=== PATIENT | male | born 1950 | race Caucasian/White ===

== ENCOUNTER → 2021-02-11 10:28 | Outpatient (BNVA) | payer MEDICARE, SELFPAY | PROVIDERS: PCP Internal Medicine; Visit Provider Urology | DX: N40.2 Nodular prostate without lower urinary tract symptoms (principal) | CPT/HCPCS: Q3014 ==

== ENCOUNTER 2023-04-07 13:26 | Day surgery (SDC) | payer MEDICARE, SELFPAY ==
[2023-04-05 11:09] VITALS: BMI 22.1
[2023-04-07] VITALS (8 sets, daily range): BP systolic 95–131; BP diastolic 53–86; PULSE 52–66; RESP 16–18; TEMP 36.1–37.1; O2SAT 98–100
--- NOTE | 2023-04-07 14:10 | HO.ANESPROP2 ---
HPI - Anesthesia Eval Consult details Narrative: EGD PMFSH Active Problems Active Problems: All Active Problems (Updated 04/05/23 @ 11:06 by Tricia Gibbs RN) Prostate nodule (Acute) Past Medical History Medical History BPH (benign prostatic hyperplasia) Anxiety and depression Arthritis Sleep apnea GERD (gastroesophageal reflux disease) Hyperlipidemia Hypothyroidism Depression Prostate nodule Family History Family history of problems with anesthesia: No Surgical History Surgical History H/O colonoscopy Hx of knee surgery History of carpal tunnel release History of Problems with Anesthesia: No Social History Social History Patient Tobacco Use Status: Never used Tobacco Have you been hit, kicked, punched, or otherwise hurt by someone within the past year? If so, by whom?: No Are you DNR?: No Advance Directives: No Advance Directives Information Provided: Yes Recently lost weight without trying: No Eating poorly because of decreased appetite: No Nutrition Risks: No Nutritional Risk Poor oral hygiene: No Meds Allergies Allergy/AdvReac Type Severity Reaction Status Date / Time aripiprazole [Abilify] Allergy Unknown Unknown Verified 02/11/21 10:29 fluoxetine [Prozac] Allergy Unknown Unknown Verified 02/11/21 10:29 Home Medications Medication Instructions Recorded Confirmed Last Taken Type atorvastatin 20 mg tablet 20 mg PO DAILY 02/11/21 04/05/23 Unknown History levothyroxine 50 mcg tablet 50 mcg PO DAILY 02/11/21 04/05/23 Unknown History (Euthyrox) gabapentin 300 mg capsule mg 04/05/23 04/05/23 Unknown History lithium carbonate 150 mg capsule 150 mg PO BID 04/05/23 04/05/23 Unknown History sildenafil 100 mg tablet 100 mg PO NEEDED intercourse 04/05/23 04/05/23 Unknown History Exam Exam Date and Time: April 07, 2023 141 Height,Weight and Vital Signs: Height 5 ft 9.5 in Weight 68.946 kg Last Vital Signs Temp 98.7 F 04/07/23 13:56 Pulse 57 04/07/23 13:56 Resp 18 04/07/23 13:56 BP 131/86 04/07/23 13:56 Pulse Ox 100 04/07/23 13:56 O2 Del Method Room Air 04/07/23 13:56 Airway Mallampati Class: II TM Dist: >3cm Neck ROM: Limited Heart: rrr Lungs: cta Assessment and Plan Assessment Anesthesia Assessment: Anesthesia Plan Discussed and Chart Reviewed Final Anesthetic Review Family History of Problems with Anesthesia: No History of Problems with Anesthesia: No NPO: Yes ASA Class: II Final Preanesthetic Review: No Changes in Pt Med Stat, Meds/Allgs Chart Reviewed, Consent Obtained/Reviewed and Anes Risks/Benef Reviewed Patient Risk: Low Procedure Risk: Intermediate Anesthetic Plan Anesthetic Plan: MAC: and Agree w/ Assess. and Plan Disposition: Standard PACU
[2023-04-07] MEDS: Lactated Ringers 1,000 ML 100 ML IVCONT (14:13)
--- NOTE | 2023-04-07 14:37 | MHC.SHP ---
Pre-Procedural Eval Section A Date of Service: 04/07/23 The patient is an INPATIENT: No Changes since office visit: No Cold of Flu in the past 2 weeks, No New Medical Problems, No Changes in Medication and No Patient answered all questions The History & Physical has been completed within 30 days and I have reviewed it.: Yes Section B Chief Complaint: Abdominal distension (gaseous),gerd, Allergies: Allergies Allergy/AdvReac Type Severity Reaction Status Date / Time aripiprazole [Abilify] Allergy Unknown Unknown Verified 02/11/21 10:29 fluoxetine [Prozac] Allergy Unknown Unknown Verified 02/11/21 10:29 Plan I have reviewed the history and physical and performed a pertinent physical examination on my patient. No changes have occurred unless specified. Time Spent With Patient Time: Total time managing care of this patient today ____ minutes.
--- NOTE | 2023-04-07 14:54 | P.BOP_ITS ---
Brief Operative Note Date of Service: 04/07/23 Pre-op diagnosis: gerd bloating Post-op diagnosis: same Procedure: EGD Surgeon: Tony Jean Baptiste MD Anesthesia: MAC Was an Customer Advocate used for this Procedure?: No Estimated blood loss (mL): 2 Pathology: other Condition: stable Disposition: PACU
--- NOTE | 2023-04-07 16:21 | OP_ITS ---
DATE OF SERVICE: 04/07/2023 SURGEON: Tony Jean Baptiste MD INDICATIONS: Gastroesophageal reflux disease and bloating. PREOPERATIVE DIAGNOSIS: POSTOPERATIVE DIAGNOSIS: PROCEDURE PERFORMED: Upper endoscopy with biopsy. ESTIMATED BLOOD LOSS: COMPLICATIONS: ANESTHESIA: Monitored anesthesia care. ASSISTANTS: SPECIMENS: DESCRIPTION OF PROCEDURE: History and physical performed. The risks and benefits of the procedure were explained to the patient. Informed consent was obtained. The patient was placed in the left lateral decubitus position. The Olympus video gastroscope was introduced into the esophagus, stomach, and duodenum. Examination was performed. The scope was removed. He tolerated the procedure well and was taken to Recovery in stable condition. FINDINGS: Esophagus: The esophagus was normal. The EG junction was slightly irregular. There was no esophagitis. Stomach: The stomach was normal. There was no mass, lesion, or ulceration. Duodenum: The bulb and second portion were normal. Biopsies were obtained from the antrum to evaluate for H pylori and from the EG junction to assess for reflux. IMPRESSION: Normal upper endoscopy. RECOMMENDATION: Follow up the biopsy results. MD DIANNE Regan/CAMDENL / [id number]
== END 2023-04-07 16:29 | disposition home or self-care (01) ==
PROVIDERS: PCP Physician Assistant Medical; Visit Provider Internal Medicine Gastroenterology
PROC: 0DJ08ZZ Inspection of Upper Intestinal Tract, Via Natural or Artificial Opening Endoscopic (ICD-10-PCS; CPT 43235; principal; 2023-04-07 14:40)
DX: K21.9 Gastro-esophageal reflux disease without esophagitis (principal); R14.0 Abdominal distension (gaseous); K29.50 Unspecified chronic gastritis without bleeding; G47.33 Obstructive sleep apnea (adult) (pediatric); E78.5 Hyperlipidemia, unspecified; E03.9 Hypothyroidism, unspecified; N40.0 Benign prostatic hyperplasia without lower urinary tract symptoms; N40.2 Nodular prostate without lower urinary tract symptoms; F41.8 Other specified anxiety disorders; Z79.899 Other long term (current) drug therapy; Z88.8 Allergy status to other drugs, medicaments and biological substances
CPT/HCPCS: 43239; 88305; 88342; J2250